=== PATIENT | male | born 1980 | race Hispanic/Latino ===

== ENCOUNTER 2017-12-13 23:27 | Emergency (ER) | payer OTHER | END 2017-12-13 23:42 | disposition home or self-care (01) | LOC: EDH 23:27 | DX: Z02.83 Encounter for blood-alcohol and blood-drug test (principal); Z72.0 Tobacco use ==

== ENCOUNTER 2020-05-24 18:00 | Inpatient (IN) | payer SELFPAY ==
[~2020-05-24] VITALS: Ht 175.3 cm; Wt 164.5 kg
[2020-05-24] MEDS ORDERED: ACETAMINOPHEN 325 MG TAB ONE (18:25)
[2020-05-24] MEDS ORDERED: CLINDAMYCIN 900 MG/D5% WATER 50 ML IV ONE (18:45)
[2020-05-24] MEDS ORDERED: DEXAMETHASONE SOD PHOSPHATE 4 MG/ML 1ML VIAL ONE (18:45)
[2020-05-24] MEDS ORDERED: ONDANSETRON HCL 4 MG/2 ML VIAL ONE (18:50)
[2020-05-24] MEDS ORDERED: MORPHINE SULFATE 2 MG/ML 1ML SYG ONE (18:50)
[2020-05-24 19:17] LABS: BASOPHILS % (AUTO) 0.4 % (0.0-5.0); EOSINOPHILS % (AUTO) 1.1 % (0.0-8.0); HEMATOCRIT 49.2 % (42-54); LYMPHOCYTES % (AUTO) 8.3 % (21.0-51.0); MEAN CORPUSCULAR HEMOGLOBIN 30.4 pg (27.0-33.0); MEAN CORPUSCULAR HGB CONC 33.1 g/dL (32.0-36.0); MEAN CORPUSCULAR VOLUME 91.6 fL (79-99); MONOCYTES % (AUTO) 8.7 % (3.0-13.0); NEUTROPHILS % (AUTO) 81.1 % (40.0-77.0); PLATELET COUNT (AUTO) 249 K/uL (130-400); RED BLOOD CELL COUNT(AUTO) 5.37 MIL/uL (4.50-6.20); RED CELL DISTRIBUTION WIDTH 13.7 % (11.0-15.5); WHITE BLOOD COUNT (AUTO) 14.1 K/uL (4.8-10.8)
[2020-05-24 19:20] LABS: POTASSIUM 3.8 mmol/L (3.5-5.1)
[2020-05-24 19:25] LABS: ALBUMIN 3.3 g/dL (3.5-5.0); BILIRUBIN,TOTAL 0.8 mg/dL (0.2-1.0); TOTAL PROTEIN, SERUM 8.3 g/dL (6.0-8.3)
[2020-05-24] MEDS ORDERED: IOHEXOL-350 50ML VIAL IV ONE (19:27)
[2020-05-24 19:31] LABS: INR 0.98 (0.85-1.15); PARTIAL THROMBOPLASTIN TIME 33.6 SEC (26.3-35.5); PROTHROMBIN TIME 10.6 SEC (9.6-11.6)
[2020-05-24 19:34] LABS: CREATINE KINASE, TOTAL 57 U/L (21-232); MYOGLOBIN 36 ng/mL (10-92); TROPONIN I < 0.04 ng/mL (0.00-0.06)
[2020-05-24] MEDS: SODIUM CHLORIDE 0.9% 1000ML 1,000 ML IV SCH (20:43)
[2020-05-24] MEDS ORDERED: ONDANSETRON HCL 4 MG/2 ML VIAL IV PRN (20:45)
[2020-05-24] MEDS ORDERED: ACETAMINOPHEN 325 MG TAB PO PRN ×2 (20:45)
[2020-05-24] MEDS ORDERED: LIDOCAINE HCL 2% VISCOUS 15 ML UDCUP ONE (20:55)
[2020-05-24] MEDS ORDERED: MAG HYDROX/AL HYDROX/SIMETH ES 30 ML SUSP UDCUP ONE (20:55)
[2020-05-24 21:02] LABS: APPEARANCE,URINE Clear (CLEAR); BILIRUBIN,URINE Small (NEGATIVE); COLOR,URINE Dark Yellow (YELLOW); GLUCOSE, URINE (UA) Negative (NEGATIVE); KETONES,URINE Trace mg/dL (NEGATIVE); LEUKOCYTE ESTERASE ,URINE Moderate (NEGATIVE); NITRATE,URINE Negative (NEGATIVE); OCCULT BLOOD,URINE Negative (NEGATIVE); PROTEIN,URINE POS 1+ mg/dL (NEGATIVE)
[2020-05-24] MEDS ORDERED: CEFTRIAXONE SODIUM 1 GM ONE (21:09)
[2020-05-24 21:15] LABS: BACTERIA,URINE Few /HPF (None Seen); RBC,URINE None Seen /HPF (0-1)
[2020-05-24 22:15] VITALS: BP 129/59
[2020-05-24 23:43] VITALS: BP 134/61
[2020-05-25 04:09] VITALS: BP 131/78
[2020-05-25] MEDS: SODIUM CHLORIDE 0.9% 1000ML 1,000 ML IV SCH ×2 (04:30→08:32)
[2020-05-25 04:46] LABS: HEMATOCRIT 47.6 % (42-54); MEAN CORPUSCULAR HGB CONC 32.8 g/dL (32.0-36.0); MEAN CORPUSCULAR VOLUME 91.5 fL (79-99); RED BLOOD CELL COUNT(AUTO) 5.2 MIL/uL (4.50-6.20); RED CELL DISTRIBUTION WIDTH 13.4 % (11.0-15.5); WHITE BLOOD COUNT (AUTO) 13.9 K/uL (4.8-10.8)
[2020-05-25 04:57] LABS: CREATININE 0.9 mg/dL (0.5-1.5); POTASSIUM 4.4 mmol/L (3.5-5.1)
[2020-05-25 09:00] VITALS: BP 129/69
[2020-05-25] MEDS ORDERED: DEXAMETHASONE 4 MG TAB PO SCH (09:00)
[2020-05-25] MEDS ORDERED: CLINDAMYCIN 900 MG/D5% WATER 50 ML IV SCH ×2 (09:30→16:15)
[2020-05-25 11:51] VITALS: BP 109/88
[2020-05-25] MEDS: CEFTRIAXONE SODIUM 1 GM IV SCH ×2 (12:23→19:48)
--- NOTE | 2020-05-25 15:25 | NUR ---
DC PLAN PATIENT LIVES WITH PARENTS. INDEPENDENT ABLE TO PERFORM ADL'S. PATIENT HAS NO SERVICES OR DME'S. FEELS SAFE TO RETURN HOME. GOOD NUMBER [phone]. Addendum: 05/25/20 at 1526 by ADRIAN GUNN RN CM Amended: Links added.
[2020-05-25] MEDS: DEXAMETHASONE SOD PHOSPHATE 4 MG/ML 1ML VIAL IVP SCH ×2 (16:47→19:48)
[2020-05-25 17:51] VITALS: BP 95/53
[2020-05-25 19:44] VITALS: BP 125/65
[2020-05-25] MEDS ORDERED: CEFTRIAXONE SODIUM 1 GM IV SCH (21:00)
[2020-05-25 23:02] VITALS: BP 120/57
[2020-05-26] MEDS: CLINDAMYCIN 900 MG/D5% WATER 50 ML IV SCH ×5 (00:06→23:17)
[2020-05-26 03:52] VITALS: BP 123/61
[2020-05-26 04:50] LABS: BASOPHILS % (AUTO) 0.1 % (0.0-5.0); EOSINOPHILS % (AUTO) 0.1 % (0.0-8.0); HEMATOCRIT 47.5 % (42-54); LYMPHOCYTES % (AUTO) 6.2 % (21.0-51.0); MEAN CORPUSCULAR HEMOGLOBIN 29.6 pg (27.0-33.0); MEAN CORPUSCULAR HGB CONC 32.6 g/dL (32.0-36.0); MEAN CORPUSCULAR VOLUME 90.6 fL (79-99); MONOCYTES % (AUTO) 3.7 % (3.0-13.0); NEUTROPHILS % (AUTO) 89.5 % (40.0-77.0); PLATELET COUNT (AUTO) 206 K/uL (130-400); RED BLOOD CELL COUNT(AUTO) 5.24 MIL/uL (4.50-6.20); RED CELL DISTRIBUTION WIDTH 13.5 % (11.0-15.5); WHITE BLOOD COUNT (AUTO) 14.4 K/uL (4.8-10.8)
[2020-05-26 05:14] LABS: HEMOGLOBIN A1C 6.6 % (4.0-6.0)
[2020-05-26 05:28] LABS: CARBON DIOXIDE 27 mmol/L (21-32); CHLORIDE 102 mmol/L (101-111); CREATININE 0.9 mg/dL (0.5-1.5); GLOMERULAR FILTR. RATE CALC 99 mL/min (>60); GLUCOSE,RANDOM 207 mg/dL (70-105); POTASSIUM 4.2 mmol/L (3.5-5.1); SODIUM SERUM 136 mmol/L (136-145); UREA NITROGEN, BLOOD 12 mg/dL (7-18)
[2020-05-26 08:30] VITALS: BP 120/59
[2020-05-26] MEDS: DEXAMETHASONE SOD PHOSPHATE 4 MG/ML 1ML VIAL IVP SCH ×3 (08:35→21:29)
[2020-05-26] MEDS: CEFTRIAXONE SODIUM 1 GM IV SCH ×2 (08:35→21:29)
[2020-05-26 11:53] VITALS: BP 124/79
--- NOTE | 2020-05-26 12:49 | NUR ---
1226: Lab called to report pt's COVID PCR is negative. Will notify hospitalist.
[2020-05-26 16:30] VITALS: BP 135/85
--- NOTE | 2020-05-26 17:34 | NUR ---
Report Attempted to call report to [facility] for pt transfer, no answer at this time. Will attempt again shortly.
--- NOTE | 2020-05-26 18:25 | NUR ---
Pt transferred Report called to SRINIVAS Dawson on 3rd floor. All questions answered and concerns addressed. Pt transferred via wheelchair by this RN in [facility].
--- NOTE | 2020-05-26 18:27 | NUR ---
received pt from icu patient in bed, no distress, respirations regular rate and rhythm, iv intact. denies any questions or concerns at this time.
[2020-05-26 19:48] VITALS: BP 111/78
[2020-05-26 23:59] VITALS: BP 108/63
[2020-05-27 03:56] VITALS: BP 106/65
[2020-05-27 04:54] LABS: BASOPHILS % (AUTO) 0.1 % (0.0-5.0); HEMATOCRIT 47.3 % (42-54); LYMPHOCYTES % (AUTO) 8.1 % (21.0-51.0); MEAN CORPUSCULAR HEMOGLOBIN 29.9 pg (27.0-33.0); MEAN CORPUSCULAR VOLUME 90.8 fL (79-99); MONOCYTES % (AUTO) 4.1 % (3.0-13.0); NEUTROPHILS % (AUTO) 87.2 % (40.0-77.0); PLATELET COUNT (AUTO) 279 K/uL (130-400); RED BLOOD CELL COUNT(AUTO) 5.21 MIL/uL (4.50-6.20); RED CELL DISTRIBUTION WIDTH 13.4 % (11.0-15.5); WHITE BLOOD COUNT (AUTO) 13.3 K/uL (4.8-10.8)
[2020-05-27 05:01] LABS: CREATININE 0.9 mg/dL (0.5-1.5); POTASSIUM 4.3 mmol/L (3.5-5.1)
[2020-05-27] MEDS: CLINDAMYCIN 900 MG/D5% WATER 50 ML IV SCH ×3 (05:14→18:50)
[2020-05-27 08:00] VITALS: BP 124/83
[2020-05-27] MEDS: CEFTRIAXONE SODIUM 1 GM IV SCH ×2 (08:51→20:56)
[2020-05-27] MEDS: DEXAMETHASONE SOD PHOSPHATE 4 MG/ML 1ML VIAL IVP SCH ×3 (08:51→20:56)
[2020-05-27 11:36] VITALS: BP 122/85
[2020-05-27 16:00] VITALS: BP 129/66
[2020-05-27 19:00] VITALS: BP 120/60
--- NOTE | 2020-05-27 20:00 | NUR ---
[facility]ED [facility] TO INFORM OF NEW CONSULT, DR MAIER CODING FILE CLERK. PENDING CALL BACK.
--- NOTE | 2020-05-27 20:14 | NUR ---
DR MAIER RETURNED CALL, INFORMED OF NEW CONSULT, BUT STATES HE DOES NOT HAVE PRIVILEGES AT THIS HOSPITAL. HE STATED IT WAS KIND OF LATE TO BE CALLING IN A NEW CONSULT. HE WAS INFORMED, PER REPORT THIS CONSULT ORDER CAME IN SINCE 05/25/20, BUT NO ONE FROM HIS GROUP HAS SHOWED UP. AGAIN HE SAID HE HAD NO PRIVILEGES AT [facility] AND DOUBTS DR HARTMAN WILL SHOW UP ON THE WEEKEND. DR CARRION TO BE INFORMED.
[2020-05-28] VITALS: BP 118/70
[2020-05-28] MEDS: CLINDAMYCIN 900 MG/D5% WATER 50 ML IV SCH ×2 (00:38→05:33)
[2020-05-28 04:00] VITALS: BP 114/71
[2020-05-28 06:03] LABS: BASOPHILS % (AUTO) 0.1 % (0.0-5.0); HEMATOCRIT 47.2 % (42-54); LYMPHOCYTES % (AUTO) 12.8 % (21.0-51.0); MEAN CORPUSCULAR HEMOGLOBIN 29.6 pg (27.0-33.0); MEAN CORPUSCULAR HGB CONC 32.6 g/dL (32.0-36.0); MEAN CORPUSCULAR VOLUME 90.6 fL (79-99); MONOCYTES % (AUTO) 6.2 % (3.0-13.0); NEUTROPHILS % (AUTO) 80.3 % (40.0-77.0); PLATELET COUNT (AUTO) 291 K/uL (130-400); RED BLOOD CELL COUNT(AUTO) 5.21 MIL/uL (4.50-6.20); RED CELL DISTRIBUTION WIDTH 13.3 % (11.0-15.5); WHITE BLOOD COUNT (AUTO) 8.9 K/uL (4.8-10.8)
[2020-05-28 06:12] LABS: POTASSIUM 4.5 mmol/L (3.5-5.1)
[2020-05-28 08:00] VITALS: BP 138/87
[2020-05-28] MEDS: CEFTRIAXONE SODIUM 1 GM IV SCH (09:19)
[2020-05-28] MEDS: DEXAMETHASONE SOD PHOSPHATE 4 MG/ML 1ML VIAL IVP SCH (09:19)
[2020-05-28] MEDS ORDERED: CEFUROXIME AXETIL 250 MG TABLET PO SCH ×2 (11:15→21:00)
[2020-05-28 12:05] VITALS: BP 111/85
--- NOTE | 2020-05-28 15:47 | NUR ---
DISCHARGE INSTRUCTION PROVIDED TO PATIENT ALONG WITH SCRIPT . PATIENT VERBILIED UNDERSTANDING
== END 2020-05-28 14:45 | disposition home or self-care (01) | DRG 153 ==
LOC: EDH 18:00 → OBSVTOIN 18:01 → EDHIP 18:01 → 2AH 22:18 → 3BH 05-26 18:16
PROVIDERS: ADMIT Internal Medicine; ATTEND Internal Medicine
DX: J36 Peritonsillar abscess (principal); Z68.43 Body mass index [BMI] 50.0-59.9, adult; N39.0 Urinary tract infection, site not specified; J39.1 Other abscess of pharynx; Z20.828 Contact with and (suspected) exposure to other viral communicable diseases; R13.10 Dysphagia, unspecified; E66.01 Morbid (severe) obesity due to excess calories; F14.90 Cocaine use, unspecified, uncomplicated; R59.1 Generalized enlarged lymph nodes; Z87.891 Personal history of nicotine dependence
CPT/HCPCS: 36415; 70491; 71045; 80048; 80053; 81001; 82550; 82948; 83036; 83605; 83874; 84145; 84484; 85025; 85027; 85610; 85730; 86140; 86900; 86901; 87040; 87071; 87077; 87088; 87186; 87426; 87880; 93005; G0378; J0696; J1100; J2405; J3490; J8540; Q9967; U0003

== ENCOUNTER 2021-06-01 18:22 | Emergency (ER) | payer SELFPAY ==
[~2021-06-01] VITALS: Ht 175.3 cm; Wt 159.2 kg
[2021-06-01 18:27] VITALS: BP 149/99
[2021-06-01 18:54] LABS: APPEARANCE,URINE CLEAR (CLEAR); BILIRUBIN,URINE SMALL (NEGATIVE); COLOR,URINE YELLOW (YELLOW); GLUCOSE, URINE (UA) NEGATIVE (NEGATIVE); KETONES,URINE 5 mg/dL (NEGATIVE); LEUKOCYTE ESTERASE ,URINE TRACE (NEGATIVE); NITRATE,URINE NEGATIVE (NEGATIVE); OCCULT BLOOD,URINE TRACE-INTACT (NEGATIVE); PH,URINE 5.5 (5.0-8.0); PROTEIN,URINE 30 mg/dL (NEGATIVE)
[2021-06-01 18:57] LABS: AMPHET/METH SCREEN,URINE NEGATIVE (NEGATIVE); BARBITURATE SCREEN, URINE NEGATIVE (NEGATIVE); BENZODIAZEPINES SCREEN,URINE NEGATIVE (NEGATIVE); CANNABINOID SCREEN,URINE NEGATIVE (NEGATIVE); COCAINE SCREEN,URINE POSITIVE (NEGATIVE); OPIATE SCREEN,URINE NEGATIVE (NEGATIVE); PHENCYCLIDINE SCREEN,URINE NEGATIVE (NEGATIVE)
[2021-06-01 19:00] LABS: BACTERIA,URINE Few /HPF (None Seen); CALCIUM OXALATE CRYSTALS,UR Many /LPF (None Seen); MUCUS,URINE Many LPF (None Seen); SQUAMOUS EPITHELIAL CELL,UR Few /HPF (0-2); TRICHOMONAS,URINE Moderate /LPF (None Seen)
== END 2021-06-01 19:49 | disposition left against medical advice (07) ==
LOC: EDH 18:22
DX: R10.9 Unspecified abdominal pain (principal); R42 Dizziness and giddiness; R11.2 Nausea with vomiting, unspecified; Z53.21 Procedure and treatment not carried out due to patient leaving prior to being seen by health care provider
CPT/HCPCS: 80305; 81001; 87088